=== PATIENT | male | born 1950 | race African-American/Black ===

== ENCOUNTER 2021-08-11 14:43 | Emergency (ER) | payer MEDICARE, MEDICAID ==
[~2021-08-11] VITALS: Ht 162.6 cm; Wt 63.0 kg
[2021-08-11 14:54] VITALS: BP 130/88
== END 2021-08-12 01:35 | disposition home or self-care (01) ==
LOC: ER 14:43
DX: S01.01XA Laceration without foreign body of scalp, initial encounter (principal); W18.39XA Other fall on same level, initial encounter; Y93.89 Activity, other specified; Y92.89 Other specified places as the place of occurrence of the external cause; Y99.8 Other external cause status; Z98.890 Other specified postprocedural states
CPT/HCPCS: 12001; 99284